=== PATIENT | male | born 1965 | race Two or more races ===

== ENCOUNTER 2023-09-17 15:10 | Inpatient (IN) | payer OTHER ==
[2023-09-17 15:41] VITALS: BMI 28.2
[2023-09-17] MEDS ORDERED: BUPRENORPHINE HCL 75 MCG FILM BC ONE (17:03)
[2023-09-17] MEDS ORDERED: BUPRENORPHINE HCL 150 MCG FILM BC ONE (17:03)
[2023-09-17] MEDS ORDERED: cloNIDine HCL 0.1 MG TABLET ONE (17:04)
[2023-09-17] MEDS ORDERED: NALOXONE HCL 0.4 MG/ML VIAL IM PRN (18:54)
[2023-09-17] MEDS ORDERED: ACETAMINOPHEN 325 MG TABLET (FP) PO PRN (18:54)
[2023-09-17] MEDS ORDERED: P-EPHED 60MG/TRIPROLIDI 2.5MG TABLET PO PRN (18:54)
[2023-09-17] MEDS ORDERED: BENZONATATE 200 MG CAPSULE PO PRN (18:54)
[2023-09-17] MEDS ORDERED: BISMUTH SUBSALICYLATE 524 MG/30 ML PO PRN (18:54)
[2023-09-17] MEDS ORDERED: IBUPROFEN 400 MG TABLET (FP) PO PRN (18:54)
[2023-09-17] MEDS ORDERED: DICYCLOMINE HCL 10 MG CAPSULE PO PRN (18:54)
[2023-09-17] MEDS ORDERED: IBUPROFEN 600 MG TABLET (FP) PO PRN (18:54)
[2023-09-17] MEDS ORDERED: guaiFENesin 600 MG TABLET.ER (FP) PO PRN (18:54)
[2023-09-17] MEDS ORDERED: POLYETHYLENE GLYCOL (HEALTHYLAX) 3350 17 GM PACKET PO PRN (18:54)
[2023-09-17] MEDS ORDERED: LOPERAMIDE HCL 2 MG CAPSULE PO PRN (18:54)
[2023-09-17] MEDS ORDERED: BENZOCAINE/MENTHOL (CHLORASEPTIC ) LOZENGE MM PRN (18:54)
[2023-09-17] MEDS ORDERED: ONDANSETRON *ODT* 4 MG TABLET SL PRN (18:54)
[2023-09-17] MEDS ORDERED: NALOXONE HCL (KLOXXADO) 8 MG SPRAY NS PRN (18:54)
[2023-09-17] MEDS: MELATONIN 5 MG TABLETS PO SCH (22:47)
[2023-09-17] MEDS: hydrOXYzine PAMOATE 25 MG CAPSULE (FP) PO PRN (22:47)
[2023-09-17] MEDS: THIAMINE HCL 100 MG TABLET (FP) PO SCH (22:47)
[2023-09-17] MEDS: METHOCARBAMOL 500 MG TABLET PO PRN (22:47)
[2023-09-18] MEDS ORDERED: cloNIDine HCL 0.1 MG TABLET PO PRN (08:47)
[2023-09-18] MEDS: PRENATAL VITAMINS W/ FOLIC ACID TABLET (FP) PO SCH (09:25)
[2023-09-18] MEDS: methaDONE HCL 10 MG TABLET (FOR DETOX USE ONLY) PO ONE (09:25)
[2023-09-18] MEDS: ASPIRIN 81 MG CHEWABLE TABLETS PO SCH (09:25)
[2023-09-18] MEDS: ONDANSETRON *ODT* 4 MG TABLET SL ONE (09:25)
[2023-09-18 12:29] LABS: HEMATOCRIT 43.1 % (35.4-49); HEMOGLOBIN 14.1 GM/dL (11.7-16.9); MCHC 32.8 g/dl (32.0-35.9); MEAN CELL VOLUME 88.5 fl (80-96); MEAN PLT VOLUME 8.8 fl (7.5-11.1); PLATELET COUNT 269 10^3/uL (134-434); RBC 4.87 M/mm3 (4.00-5.60); RDW 13.2 % (11.9-15.9); WHITE BLOOD COUNT 7.9 K/mm3 (4.0-10.0)
[2023-09-18 12:38] LABS: POTASSIUM 4.1 mmol/L (3.5-5.1)
[2023-09-18 12:46] LABS: ALBUMIN 3.1 g/dl (3.4-5.0); BLOOD UREA NITROGEN 8.1 mg/dL (7-18)
[2023-09-18 12:49] LABS: CREATININE 0.9 mg/dL (0.55-1.3)
[2023-09-18 12:51] LABS: BILIRUBIN,TOTAL 0.5 mg/dL (0.2-1); TOT PROT 6.1 g/dl (6.4-8.2)
[2023-09-18] MEDS: MAG HYDROX/AL HYDROX/SIMETH 30 ML UNIT-DOSE CUP PO PRN (15:09)
[2023-09-18] MEDS: ATORVASTATIN CA 10 MG TABLET (FP) PO SCH (22:37)
[2023-09-20] MEDS: methaDONE HCL 10 MG TABLET (FOR DETOX USE ONLY) PO ONE (09:47)
[2023-09-20] MEDS: MAGNESIUM HYDROX 2400MG/30ML ORAL SUSPENSION 30 ML CUP PO PRN (09:49)
[2023-09-20] MEDS: SENNOSIDES 8.6MG TABLET (FP) PO SCH (13:06)
[2023-09-22] MEDS: methaDONE HCL 10 MG TABLET (FOR DETOX USE ONLY) PO ONE (10:14)
[2023-09-22 18:29] VITALS: RESP 16
[2023-09-23 06:04] VITALS: TEMP 97.6
[2023-09-23 09:38] VITALS: BP 117/67; PULSE 67
== END 2023-09-23 11:22 | disposition home or self-care (01) | DRG 773 ==
LOC: YASAS 15:10 → Y6N 21:14
PROVIDERS: ADMIT Allergy & Immunology; ATTEND Surgery
PROC: HZ2ZZZZ Detoxification Services for Substance Abuse Treatment (ICD-10-PCS; principal; 2023-09-16)
DX: F11.23 Opioid dependence with withdrawal (principal); E78.5 Hyperlipidemia, unspecified; K59.03 Drug induced constipation; R73.03 Prediabetes; Z87.891 Personal history of nicotine dependence; Z28.310 Unvaccinated for COVID-19; Z28.9 Immunization not carried out for unspecified reason
CPT/HCPCS: 36415; 80053; 80305; 83036; 85027; 86780; 93005; 93010; Q0162

== ENCOUNTER 2024-01-23 13:14 | Inpatient (IN) | payer OTHER ==
[2024-01-23 14:11] VITALS: BMI 28.4
[2024-01-23] MEDS ORDERED: ONDANSETRON *ODT* 4 MG TABLET SL PRN (14:57)
[2024-01-23] MEDS ORDERED: MAG HYDROX/AL HYDROX/SIMETH 30 ML UNIT-DOSE CUP PO PRN (14:57)
[2024-01-23] MEDS ORDERED: NALOXONE (NARCAN) HCL 4 MG/0.1 ML SPRAY NS PRN (14:57)
[2024-01-23] MEDS ORDERED: guaiFENesin 600 MG TABLET.ER (FP) PO PRN (14:57)
[2024-01-23] MEDS ORDERED: NICOTINE POLACRILEX 2 MG GUM BUC PRN (14:57)
[2024-01-23] MEDS ORDERED: NALOXONE HCL 0.4 MG/ML VIAL IM PRN (14:57)
[2024-01-23] MEDS ORDERED: NICOTINE POLACRILEX 2 MG LOZENGE BC PRN (14:57)
[2024-01-23] MEDS ORDERED: POLYETHYLENE GLYCOL (HEALTHYLAX) 3350 17 GM PACKET PO PRN (14:57)
[2024-01-23] MEDS ORDERED: DICYCLOMINE HCL 10 MG CAPSULE PO PRN (14:57)
[2024-01-23] MEDS ORDERED: IBUPROFEN 400 MG TABLET (FP) PO PRN (14:57)
[2024-01-23] MEDS ORDERED: BISMUTH SUBSALICYLATE 262 MG/15 ML BTL PO PRN (14:57)
[2024-01-23] MEDS ORDERED: BENZOCAINE/MENTHOL (CHLORASEPTIC ) LOZENGE MM PRN (14:57)
[2024-01-23] MEDS ORDERED: MAGNESIUM HYDROX 2400MG/30ML ORAL SUSPENSION 30 ML CUP PO PRN (14:57)
[2024-01-23] MEDS ORDERED: LOPERAMIDE HCL 2 MG CAPSULE PO PRN (14:57)
[2024-01-23] MEDS ORDERED: ACETAMINOPHEN 325 MG TABLET (FP) PO PRN (14:57)
[2024-01-23] MEDS ORDERED: BENZONATATE 200 MG CAPSULE PO PRN (14:57)
[2024-01-23] MEDS ORDERED: methaDONE HCL 10 MG TABLET (FOR DETOX USE ONLY) ONE (15:44)
[2024-01-23] MEDS ORDERED: PRENATAL VITAMINS W/ FOLIC ACID TABLET (FP) PO ONE (15:44)
[2024-01-23] MEDS: PRENATAL VITAMINS W/ FOLIC ACID TABLET (FP) PO SCH (15:49)
[2024-01-23] MEDS: methaDONE HCL 10 MG TABLET (FOR DETOX USE ONLY) PO ONE ×3 (15:57→20:22)
[2024-01-23] MEDS ORDERED: amLODIPine BESYLATE 5 MG TABLET (FP) PO SCH (16:00)
[2024-01-23] MEDS ORDERED: TAMSULOSIN HCL 0.4 MG CAP PO SCH (16:00)
[2024-01-23] MEDS: TAMSULOSIN HCL 0.4 MG CAP PO SCH (18:56)
[2024-01-23] MEDS: amLODIPine BESYLATE 5 MG TABLET (FP) PO SCH (18:56)
[2024-01-23] MEDS: METHOCARBAMOL 500 MG TABLET PO PRN (22:21)
[2024-01-23] MEDS: MELATONIN 5 MG TABLETS PO SCH (22:21)
[2024-01-23] MEDS: THIAMINE 100 MG TABLET PO SCH (22:21)
[2024-01-23] MEDS: cloNIDine HCL 0.1 MG TABLET PO PRN (22:23)
[2024-01-24 12:04] LABS: CHLORIDE 105 mmol/L (98-107); POTASSIUM 4.4 mmol/L (3.5-5.1); SODIUM 140 mmol/L (136-145)
[2024-01-24 12:08] LABS: ALBUMIN 3.4 g/dl (3.4-5.0); ANION GAP 5 mmol/L (4-13); BLOOD UREA NITROGEN 9.3 mg/dL (7-18); CALCIUM 8.9 mg/dL (8.5-10.1); CO2 29 mmol/L (21-32)
[2024-01-24 12:09] LABS: GLUCOSE,RANDOM 89 mg/dL (74-106)
[2024-01-24 12:11] LABS: CREATININE 0.8 mg/dL (0.55-1.3); SGOT/AST 19 U/L (15-37); SGPT/ALT 36 U/L (13-61)
[2024-01-24 12:12] LABS: HEMATOCRIT 40.3 % (35.4-49); HEMOGLOBIN 13.5 GM/dL (11.7-16.9); MCH 29.4 pg (25.7-33.7); MCHC 33.6 g/dl (32.0-35.9); MEAN CELL VOLUME 87.6 fl (80-96); MEAN PLT VOLUME 8.6 fl (7.5-11.1); PLATELET COUNT 247 10^3/uL (134-434); RDW 12.9 % (11.9-15.9); WHITE BLOOD COUNT 7.2 K/mm3 (4.0-10.0)
[2024-01-24 12:13] LABS: BILIRUBIN,TOTAL 0.9 mg/dL (0.2-1); TOT PROT 6.4 g/dl (6.4-8.2)
[2024-01-24 12:14] LABS: ALK PHOS 94 U/L (45-117)
[2024-01-24 13:01] LABS: HIV INTERPRETATION NEGATIVE (NEGATIVE)
[2024-01-25] MEDS: methaDONE HCL 10 MG TABLET (FOR DETOX USE ONLY) PO ONE (09:39)
[2024-01-26] MEDS: IBUPROFEN 600 MG TABLET (FP) PO PRN (09:45)
[2024-01-26] MEDS: hydrOXYzine PAMOATE 25 MG CAPSULE (FP) PO PRN (09:46)
[2024-01-26] MEDS: SODIUM CHLORIDE NASAL SPRAY 44 ML BOTTLE NS SCH (22:23)
[2024-01-27] MEDS: methaDONE HCL 10 MG TABLET (FOR DETOX USE ONLY) PO ONE (09:50)
[2024-01-28 06:14] VITALS: BP 106/66; PULSE 61; RESP 17; TEMP 98.7
== END 2024-01-28 09:20 | disposition home or self-care (01) | DRG 773 ==
LOC: YASAS 13:14 → Y6N 15:10
PROVIDERS: ADMIT Allergy & Immunology; ATTEND Surgery
PROC: HZ2ZZZZ Detoxification Services for Substance Abuse Treatment (ICD-10-PCS; principal; 2024-01-23)
DX: F11.23 Opioid dependence with withdrawal (principal); F17.210 Nicotine dependence, cigarettes, uncomplicated; F19.282 Other psychoactive substance dependence with psychoactive substance-induced sleep disorder; F39 Unspecified mood [affective] disorder; E78.5 Hyperlipidemia, unspecified; I10 Essential (primary) hypertension; K76.0 Fatty (change of) liver, not elsewhere classified; N40.0 Benign prostatic hyperplasia without lower urinary tract symptoms; Z86.2 Personal history of diseases of the blood and blood-forming organs and certain disorders involving the immune mechanism; Z88.1 Allergy status to other antibiotic agents; Z86.79 Personal history of other diseases of the circulatory system
CPT/HCPCS: 36415; 80053; 80305; 80307; 82962; 85027; 86780; 86803; 87389; 93005; 93010